=== PATIENT | female | born 1980 | race Caucasian/White ===

== ENCOUNTER → 2020-07-02 13:31 | Outpatient (CLI) | payer OTHER ==
--- NOTE | ~2020-07-02 | EC ---
PATIENT:BAYRON CARDENAS DATE OF SERVICE: 07/02/20 SEX: F MEDICAL RECORD: [id number] DATE OF : [birth year] LOCATION:[facility] AGE OF PATIENT: 40 ADMISSION DATE: 07/02/20 REFERRING PHYSICIAN: INTERPRETING PHYSICIAN: GUERO GALVAN MD ECHOCARDIOGRAM REPORT ECHO CHARGES 4 ECHO COMPLETE Date: 07/02/20 CLINICAL DIAGNOSIS: CHEST PAIN, HEART MURMUR ECHOCARDIOGRAPHIC MEASUREMENTS (adult normal given) AC root (d.<3.7cm) 2.9 cm LV Septum d (<1.2 cm> 1.2 cm Valve Excursion 1.4 cm LV Septum (systole) 1.4 cm Left Atria (s.<4.0cm> 4.1 cm LVPW d(<1.2cm) 1.2 cm RV (d.<2.3cm) 4.2 cm LVPW (sytole) 1.5 cm LV diastole(<5.6CM) 4.5 cm MV E-F(>70mm/sec) cm LV systole 3.2 cm LVOT Diameter 1.9 cm MV exc.(>10mm) 1.7 cm Est.ejection fraction (50-75%) % DOPPLER: LVIT cm/sec A 73.0 cm/sec E 99.0 cm/sec LA cm/sec RVSP 24 mmHg LVOT 106 cm/sec AOP1/2T m/s Asc. Ao 141 cm/sec RVOT 85 cm/sec RA cm/sec PA 136 cm/sec AV Gradient Peak 7.92 mmHg AV Mean 4.22 mmHg AV Area 2.2 cm MV Gradient Peak 5.07 mmHg MV Mean 1.82 mmHg MV Area cm COMMENTS: Structures Engineer: 2 BETTYE CAMARILLO Slp: 3 Dr. Jaramillo TAPE# PACS Pericardial Effusion N DATE OF SERVICE: FINDINGS: No LVH. LV internal dimension is normal. Wall motion is normal. EF is greater than or equal to 55%. Aortic valve is tricuspid. No evidence of stenosis by Doppler interrogation. Left atrium is upper limits of normal to mildly dilated at 4.1 cm. Mitral valve shows no prolapse. Trivial MR. Right side is grossly normal. Trivial TR. TRANSINT:[id number] Voice Confirmation ID: [id number] DOCUMENT ID: [id number] ECHOCARDIOGRAM REPORT [id number] RONALD,GUERO VILLA MD CC: [id number] DICTATION DATE: 07/02/20 150 TERMINAL SYSTEM OPERATOR: 07/02/202049 [facility] [address] [id number]
--- NOTE | ~2020-07-02 | ST ---
PATIENT:BAYRON CARDENAS MEDICAL RECORD: [id number] SEX: F LOCATION:[facility] ORDER #: ADMISSION DATE: 07/02/20 AGE OF PATIENT: 40 REFERRING PHYSICIAN: INTERPRETING PHYSICIAN: GUERO GALVAN MD DATE OF SERVICE: 07/02/2020 TREADMILL STRESS TEST Baseline ECG is normal. Exercised for 6 minutes on Benedicto protocol. Maximum heart rate is 171 beats per minute, greater than 95% max predicted. No ECG changes of ischemia. No symptoms of ischemia. Normal blood pressure response to exercise. No arrhythmias noted. Eapb-bo-whdr exercise tolerance for age. TRANSINT:[id number] Voice Confirmation ID: [id number] DOCUMENT ID: [id number] GUERO GALVAN MD CC: [id number] DICTATION DATE: 07/03/201211 [place] [facility] GUIDE: 07/04/20 0452 DEP CLI 07/02/20 [id number] [place] [address]
== END | disposition home or self-care (01) ==
LOC: D.HCCECHO 13:31
PROVIDERS: ATTEND Internal Medicine Interventional Cardiology
DX: R07.9 Chest pain, unspecified (principal); R01.1 Cardiac murmur, unspecified; I20.9 Angina pectoris, unspecified